=== PATIENT | male | born 1955 | race Caucasian/White ===

== ENCOUNTER 2017-03-17 14:07 | Emergency (ER) | payer OTHER, BC ==
[~2017-03-17] VITALS: Ht 167.6 cm; Wt 65.4 kg
[2017-03-17 16:18] VITALS: BP 125/75
== END 2017-03-17 16:18 | disposition home or self-care (01) ==
LOC: EME 14:07
DX: S40.012A Contusion of left shoulder, initial encounter (principal); S50.02XA Contusion of left elbow, initial encounter; V29.40XA Motorcycle driver injured in collision with unspecified motor vehicles in traffic accident, initial encounter; Y92.488 Other paved roadways as the place of occurrence of the external cause; M25.552 Pain in left hip; R07.81 Pleurodynia; I10 Essential (primary) hypertension; E78.00 Pure hypercholesterolemia, unspecified; Z72.0 Tobacco use
CPT/HCPCS: 71020; 73030; 73080; 73502; 73564; 99281; 99283

== ENCOUNTER → 2017-07-29 | Outpatient (CLI) | payer BC | END | disposition home or self-care (01) | LOC: NUC 06:42 | DX: R10.13 Epigastric pain (principal) | CPT/HCPCS: 78264; A9541 ==